=== PATIENT | female | born 1980 | race Two or more races ===

== ENCOUNTER 2024-11-03 06:46 | Day surgery (SDC) | payer OTHER ==
[~2024-11-03 06:46] MED LIST: D3-5000125 MCG PO; LEVO-T112 MCG PO
[2024-11-03] MEDS ORDERED: HEMOSTATIC MATRIX 1 KIT KIT TOP ONE (11:00)
[2024-11-03] MEDS ORDERED: BUPIVACAINE LIPOSOME/PF 266 MG/20 ML VIAL IJ ONE (11:00)
[2024-11-03] MEDS ORDERED: DIBUCAINE 15 GM OINT..GM. TUBE RECTAL ONE (11:00)
[2024-11-03] MEDS ORDERED: METRONIDAZOLE/SODIUM CHLORIDE 500 MG/100 ML PIGGYBACK IV ONE (11:00)
[2024-11-03] MEDS ORDERED: POVIDONE-IODINE 118 ML BOTT TOP ONE (11:00)
[2024-11-03] MEDS ORDERED: CEFTRIAXONE SODIUM 2,000 MG VIAL IV ONE (11:00)
== END 2024-11-03 16:40 | disposition home or self-care (01) ==
LOC: CIR.AMB 06:46
PROVIDERS: ATTEND Colon & Rectal Surgery
DX: K64.2 Third degree hemorrhoids (principal); K64.4 Residual hemorrhoidal skin tags; K60.1 Chronic anal fissure; K62.4 Stenosis of anus and rectum; K92.1 Melena; Z91.041 Radiographic dye allergy status; Z91.013 Allergy to seafood; J45.909 Unspecified asthma, uncomplicated